=== PATIENT | female | born 1940 | race American Indian/Alaskan Native ===

== ENCOUNTER 2017-06-06 06:57 | Day surgery (SDC) | payer MEDICARE ==
[~2017-06-06 06:57] MED LIST: NACL 0.9% 1000 ML 1,000 ML IV SCH; PEPCID PO NR
[2017-06-06] MEDS ORDERED: NACL BACTERIOSTATIC INFILTRATI ONE (07:54)
--- NOTE | 2017-06-06 07:58 | Anesthesia Consultation ---
Anesthesia Consult and Med Hx Date of service: 06/06/17 - Airway Anesthetic Teeth Evaluation: Dentures ROM Head & Neck: Inadequate Mental/Hyoid Distance: Inadequate Mallampati Class: Class II Intubation Access Assessment: Probably Good - Pulmonary Exam CTA: Yes - Cardiac Exam Cardiac Exam: RRR - Pre-Operative Health Status ASA Pre-Surgery Classification: ASA3 Proposed Anesthetic Plan: MAC - Pulmonary Hx Smoking: No Hx Pneumonia: Yes (03/2017- RESOLVED) Hx Sleep Apnea: No (NATASHA PRE SCREEN HIGH RISK) - Cardiovascular System Hx Hypertension: Yes (X 15 YRS) - Endocrine Hx Hypothyroidism: Yes (PARTIAL THYROIDECTOMY- NO MEDS) - Hematic Hx Anemia: No Hx Sickle Cell Disease: No - Other Systems Hx Alcohol Use: No Hx Substance Use: No Hx Cancer: No Hx Obesity: No
--- NOTE | 2017-06-06 07:58 | Anesthesia Day of Surgery ---
Anesthesia Day of Surgery - Day of Surgery Patient Examined: Yes Patient H&P Reviewed: Yes Patient is NPO: Yes
[2017-06-06] MEDS ORDERED: TORADOL ONE ×2 (08:00→10:00)
[2017-06-06] MEDS ORDERED: DIPRIVAN 10 MG/ML IV ONE (08:00)
[2017-06-06] MEDS ORDERED: QUELICIN ONE (08:00)
[2017-06-06] MEDS ORDERED: XYLOCAINE MPF 2% ONE (08:01)
[2017-06-06] MEDS ORDERED: MARCAINE-EPI 0.25%-1:200,000 INFILTRATI ONE (08:03)
[2017-06-06] MEDS ORDERED: DECADRON ONE (08:03)
[2017-06-06] MEDS ORDERED: XYLOCAINE 1% 20 mL ONE (08:03)
[2017-06-06] MEDS ORDERED: VERSED IV NR (09:00)
[2017-06-06] MEDS ORDERED: TRANSDERM-SCOP TD NR (09:00)
[2017-06-06] MEDS ORDERED: SUBLIMAZE IV ONE (09:00)
[2017-06-06] MEDS ORDERED: ZOFRAN ONE (09:43)
[2017-06-06] MEDS: DILAUDID IV PRN ×2 (09:52→10:14)
--- NOTE | 2017-06-06 09:56 | Short Stay Summary ---
Short Stay Documentation Date of service: 06/06/17 - Allergies and Medications Current Medications: Allergies latex Allergy (Verified 06/03/17 11:33) Hives meperidine HCl [From Demerol] Allergy (Verified 06/03/17 11:33) Hives morphine Allergy (Verified 06/03/17 11:33) Hives Home Medications Medication Instructions Recorded Confirmed Last Taken Type AtorvaSTATin [Lipitor] 10 mg PO QHS 06/03/17 06/03/17 06/05/17 History EPINEPHrine [Epipen 2-Vahid] 0.3 mg IM PRN PRN 06/03/17 06/03/17 Unknown History Hydrochlorothiazide [HCTZ] 25 mg PO QDAY 06/03/17 06/06/17 06/05/17 History Metoprolol [Lopressor] 25 mg PO BID 06/03/17 06/03/17 06/06/17 05:00 History Quinapril HCl 40 mg PO BID 06/03/17 06/03/17 06/06/17 05:00 History Raloxifene HCl [Evista] 60 mg PO DAILY 06/03/17 06/03/17 06/05/17 History amLODIPine [Norvasc] 5 mg PO DAILY 06/03/17 06/03/17 06/06/17 05:00 History Active Medications Famotidine (Pepcid) 20 mg PO PREOP NR Stop: 06/06/17 23:59 Last Admin: 06/06/17 07:53 Dose: 20 mg Hydromorphone HCl (Dilaudid) 0.5 mg IV Q10MIN PRN PRN Reason: Pain , Severe (7-10) Stop: 06/06/17 12:00 Sodium Chloride (Nacl 0.9% 1000 Ml) 1,000 mls @ 100 mls/hr IV DIRECT ALLA Last Admin: 06/06/17 08:00 Dose: 100 mls/hr Ondansetron HCl (Zofran) 4 mg IV ONCE PRN PRN Reason: Nausea And Vomiting Stop: 06/06/17 10:01 Scopolamine (Transderm-Scop) 1 each TD PREOP NR Stop: 06/06/17 12:00 Last Admin: 06/06/17 08:22 Dose: 1 each Short Stay Discharge Plan Activity: no restrictions, advance as tolerated Weight Bearing Status: Weight Bear as Tolerated Diet: regular Wound: open to air Special Instructions: physical therapy, occupational therapy, other (Knee ROM exercises , work on knee flexion and knee extension) Durable Medical Equipment Needed Upon Discharge: CPM Additional Instructions: Continue home meds, ice pacs to the knee 3-4 times a day for 20 min each time. PT for ROM exercises of the knee for straight 14 days and then 4 times a week for 2 month. Pain meds PRN. Follow up with: PRIMARY MD CARLITA [Primary Care Provider] - 7 Days PREMA PIERRE MD [Staff Physician] - 06/18/17
[2017-06-06] MEDS ORDERED: ZOFRAN IV PRN (10:00)
--- NOTE | 2017-06-06 11:05 | Post Anesthesia Evaluation ---
- Post Anesthesia Evaluation Patient Participated: Yes Airway Patent: Yes Stable Respiratory Function: Yes Nausea/Vomiting: No Temp > 96.8F: Yes Pain Manageable: Yes Adequeate Hydration: Yes Anesthesia Complications: No Block Receding Appropriately: Not Applicable Patient on Ventilator: No
--- NOTE | 2017-06-06 13:41 | Operative Report ---
PREOPERATIVE DIAGNOSES: Arthrofibrosis of right knee joint, status post revision knee arthroplasty, history of arthrofibrosis. POSTOPERATIVE DIAGNOSES: Arthrofibrosis of right knee joint, status post revision knee arthroplasty, history of arthrofibrosis. PROCEDURE PERFORMED: Manipulation of the right knee under anesthesia. COMPLICATIONS: None. SURGEON: Michele Ontiveros MD BRIEF HISTORY: The patient had a severe stiff arthrofibrotic knee, stuck in one fixed flexion deformity about 40 to 50 degrees preoperatively after knee replacement, had no knee bending and opted for revision knee arthroplasty. The patient had an uneventful revision knee arthroplasty and had good range of motion up to 96 degrees and over time period, she is performing significant scar tissue formation tends to stiffing up more and has history of significant arthrofibrosis and the patient elected for manipulation under anesthesia. No guarantee expressed. Informed consent obtained. Risks, benefits discussed. DETAILS OF THE PROCEDURE: The patient was taken to the operating room. Smooth general endotracheal anesthesia, all the bony prominences were carefully padded, placed supine on the operating table. After anesthesia and verbal consent, right lower extremity was started to manipulate gently. 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 Manipulation around the peripatellar tissue was also performed. The gradual knee bending was performed. We could hear the keeping the ears close to the knee and could hear the scar tissue cracking. No complications. Once necessary pictures pre and post in extension and flexion were taken and satisfactory manipulation was achieved, ice packs were applied. The patient tolerated the procedure well, shifted to recovery room in stable condition. JOB# [id number] JOHN/NATA
[2017-06-06 14:14] VITALS: BP 136/71
--- NOTE | 2017-06-06 14:20 | XRay Report ---
RIGHT KNEE, 2 VIEWS History: Knee pain. Findings: No comparison. Previous right knee arthroplasty changes are identified. The hardware appears well applied. No acute fracture is detected. There is diffuse anterior soft tissue swelling or edema. No obvious joint effusion. The bony structures are mildly demineralized. Impression: Anterior soft tissue swelling. Stable appearance of the right knee prosthesis.
== END 2017-06-06 12:20 | disposition home or self-care (01) ==
LOC: OR 06:57
PROVIDERS: ATTEND Orthopaedic Surgery
DX: M24.661 Ankylosis, right knee (principal); I10 Essential (primary) hypertension; E78.00 Pure hypercholesterolemia, unspecified; E03.9 Hypothyroidism, unspecified; M19.90 Unspecified osteoarthritis, unspecified site; Z85.3 Personal history of malignant neoplasm of breast; Z87.01 Personal history of pneumonia (recurrent); Z88.5 Allergy status to narcotic agent; Z91.040 Latex allergy status; Z79.899 Other long term (current) drug therapy; Z90.12 Acquired absence of left breast and nipple; Z96.653 Presence of artificial knee joint, bilateral; Z98.890 Other specified postprocedural states; Z90.710 Acquired absence of both cervix and uterus
CPT/HCPCS: 27570; 36415; 64450; 73560; 84132; J0330; J1100; J1170; J1885; J2250; J2405; J2704; J3010; J7030